=== PATIENT | male | born 1970 | race Caucasian/White ===

== ENCOUNTER → 2020-12-24 | Outpatient (CLI) | payer BC ==
--- NOTE | 2020-12-24 08:08 | US ---
EXAMINATION TYPE: US abdomen complete DATE OF EXAM: 12/24/2020 COMPARISON: NONE CLINICAL HISTORY: K46.9 Unspecified abdominal hernia without. LUQ pain EXAM MEASUREMENTS: Liver Length: 15.8 cm Gallbladder Wall: 0.1 cm CBD: 0.5 cm Spleen: 8.3 cm Right Kidney: 10.2 x 5.4 x 6.0 cm Left Kidney: 11.5 x 5.7 x 5.7 cm Pancreas: Tail obscured by overlying bowel gas Liver: wnl Gallbladder: wnl Evidence for sonographic Marie's sign: neg CBD: wnl Spleen: wnl Right Kidney: No hydronephrosis or masses seen Left Kidney: No hydronephrosis or masses seen Upper IVC: wnl Abd Aorta: No AAA visualized Area of concern in LUQ scanned. No abnormality visualized at time of scan. The liver is homogenous. The intrahepatic portion of the IVC and proximal abdominal aorta are within normal limits. There is no evidence of cholelithiasis. Common bile duct is unremarkable. The visu alized portions of the pancreas are homogenous. The spleen is unremarkable. Kidneys are symmetric a nd free of hydronephrosis. No renal lesions are seen. IMPRESSION: No discrete abnormality appreciated at this time.
== END | disposition home or self-care (01) ==
LOC: RADUSWWP 07:28
PROVIDERS: ATTEND Family Medicine
DX: K46.9 Unspecified abdominal hernia without obstruction or gangrene (principal); R10.12 Left upper quadrant pain
CPT/HCPCS: 76700

== ENCOUNTER → 2021-12-09 | Outpatient (CLI) | payer BC ==
--- NOTE | 2021-12-09 09:31 | CT ---
EXAMINATION TYPE: CT abdomen pelvis w con DATE OF EXAM: 12/09/2021 COMPARISON: NONE HISTORY: 51-year-old male with pain, K57.32, Diverticulitis TECHNIQUE: Contiguous axial scanning of the abdomen and pelvis following administration of 100 ml Iso maite 300 IV contrast. Delayed images through the kidneys and coronal/sagittal reconstructions perform ed. CT DLP: 1468 mGycm Automated exposure control for dose reduction was used. FINDINGS: LUNG BASES: Some mild strandy atelectasis in the lower lungs. Tiny hiatal hernia. LIVER/GB: 8 mm hypodensity left hepatic dome too small for accurate CT characterization, likely tiny cyst. Liver mildly enlarged at 19.0 cm. Portal venous system is patent. No biliary ductal dilatation. Gallbladder unremarkable. Possible incidental communication/shunt from the portal venous confluence to the left renal vein incidentally noted. No abnormal dilatation of the main portal vein. PANCREAS: No significant abnormality is seen. SPLEEN: No significant abnormality is seen. ADRENALS: No significant abnormality is seen. KIDNEYS: No significant abnormality is seen. BOWEL: Moderate stool burden. Left-sided colonic diverticulosis, greatest in the sigmoid colon. No pe ricolonic inflammatory change. No dilated small bowel, free fluid, or free air. LYMPH NODES: No significant abnormality is seen. PELVIS: Scattered pelvic lymph nodes. Slightly patulous inguinal canals. No abnormal fluid collectio n the pelvis or pelvic lymphadenopathy. No significant abnormality is seen. BONES: No significant abnormality is seen. IMPRESSION: 1. LEFT-SIDED COLONIC DIVERTICULOSIS, GREATEST IN THE SIGMOID COLON. NO EVIDENCE FOR ACUTE DIVERTICUL ITIS. 2. MILD HEPATOMEGALY AT 19.0 CM. 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 3. TINY HIATAL HERNIA. MODERATE STOOL BURDEN.
== END | disposition home or self-care (01) ==
LOC: RADCTMAIN 07:10
PROVIDERS: ATTEND Surgery
DX: K57.30 Diverticulosis of large intestine without perforation or abscess without bleeding (principal); K44.9 Diaphragmatic hernia without obstruction or gangrene; R16.0 Hepatomegaly, not elsewhere classified
CPT/HCPCS: 74177; Q9967

== ENCOUNTER → 2024-10-14 | Outpatient (CLI) | payer BC ==
[2024-10-14 19:25] LABS: Basophils # (A) 0.06 X 10*3/uL (0.00-0.10); Basophils % (A) 0.7 %; Eosinophils # (A) 0.12 X 10*3/uL (0.04-0.35); Eosinophils % (A) 1.4 %; HCT 43.3 % (39.6-50.0); HGB 14.4 g/dL (13.0-17.0); Immature Grans, Automated 0.20 %; Lymphocytes # (A) 3.68 X 10*3/uL (0.90-5.00); Lymphocytes % (A) 42.8 %; MCH 29.9 pg (27.0-32.0); MCHC 33.3 g/dL (32.0-37.0); MCV 90.0 FL (80.0-97.0); Monocytes # (A) 0.93 X 10*3/uL (0.20-1.00); Monocytes % (A) 10.8 %; NRBC Per 100 WBC 0 X 10*3/uL (0.00-0.01); Neutrophils # (A) 3.79 X 10*3/uL (1.80-7.70); Neutrophils % (A) 44.1 %; Platelet Count 246 X 10*3/uL (140-440); RBC 4.81 X 10*6/uL (4.40-5.60); RDW 12.7 % (11.5-14.5); WBC 8.60 X 10*3/uL (4.50-10.00)
[2024-10-14 19:36] LABS: Anion Gap 11.90 mmol/L (4.00-12.00); BUN/Creat Ratio 16.50 Ratio (12.00-20.00); Blood Urea Nitrogen 13.2 mg/dL (9.0-27.0); Carbon Dioxide 21.1 mmol/L (21.6-31.8); Chloride 106 mmol/L (96-109); Cholesterol 201.00 mg/dL (0.00-200.00); Glucose 91 mg/dL (70-110); HDL Cholesterol 80.50 mg/dL (40.00-60.00); LDL Cholesterol,Calculated 108.3 mg/dL (0.0-131.0); Potassium 4.1 mmol/L (3.5-5.5); Sodium 139 mmol/L (135-145); Triglycerides 60.80 mg/dL (0.00-149.00); VLDL Calculation 12.16 mg/dL (5.00-40.00)
[2024-10-14 19:37] LABS: ALT 26 U/L (10-49); AST 25 U/L (14-35); Albumin 4.2 g/dL (3.8-4.9); Albumin/Globulin Ratio 1.45 Ratio (1.60-3.17); Alkaline Phosphatase 73 U/L (41-126); Calcium 9.2 mg/dL (8.7-10.3); Globulin 2.9 g/dL (1.6-3.3); Total Protein 7.1 g/dL (6.2-8.2)
--- NOTE | 2024-10-14 22:07 | XR ---
EXAMINATION TYPE: XR chest 2V DATE OF EXAM: 10/14/2024 3:57 PM COMPARISON: None CLINICAL INDICATION: Male, 53 years old with history of [id number] LEFT CHEST PRESSURE, , TECHNIQUE: Frontal and lateral views FINDINGS: Heart upper limits of normal in size. Aorta and pulmonary vasculature within normal limits. There is mild hyperinflation without consolidation or pleural effusion. IMPRESSION: Borderline heart size. Mild hyperinflation may relate to a depth of inspiration or underlying emphyse ma. Clinically correlate. No acute process seen. [facility], Workstation: [facility], 10/14/2024 10:04 PM
== END | disposition home or self-care (01) ==
LOC: RADXRMAIN 14:13
PROVIDERS: ATTEND General Practice
DX: Z00.00 Encounter for general adult medical examination without abnormal findings (principal); R07.89 Other chest pain
CPT/HCPCS: 71046; 80053; 80061; 83036; 85025